=== PATIENT | female | born 1955 | race Caucasian/White ===

== ENCOUNTER → 2025-01-22 10:07 | Outpatient (CLI) | payer OTHER, SELFPAY ==
--- NOTE | 2025-01-22 10:12 | DI.RAD.S_ITS ---
PROCEDURE: XR DEXA AXIAL SKELETON INDICATIONS: Osteoporosis screening COMPARISON: None. FINDINGS: Lumbar Spine: Bone mineral density 0.734 g/cm2, T score -2.9. Left Femoral Neck: Bone mineral density 0.532 g/cm2, T score -2.9. Left Hip: Bone mineral density 0.719 g/cm2, T score -1.8. Fracture Risk Calculation (when applicable): Not applicable (T score greater or equal to -1.0 to: NORMAL) (T score from -1.1 to -2.4: OSTEOPENIA) (T score less than or equal to -2.5: OSTEOPOROSIS) IMPRESSION: Osteoporosis. Follow-up guidelines as follows: Osteoporosis: Consider a repeat DEXA and Vertebral Fracture Assessment (VFA) exam in 2 years or sooner if medically necessary, to reassess this patient's status. Osteopenia: Consider a repeat DEXA in 2-3 years to reassess this patient's status, or if there is a new clinical indication. Normal: Consider a repeat DEXA in 5 years or sooner, or if there is a new clinical indication. All treatment decisions require clinical judgment and consideration of individual patient factors, including patient preferences, comorbidities, previous drug use, risk factors not captured in the FRAX model (e.g., frailty, falls, vitamin D deficiency, increased bone turnover, interval significant decline in bone density ) and possible under- or over-estimation of fracture risk by FRAX. In addition, the NOF Guide recommends that FDA-approved medical therapies be considered in postmenopausal women and men age >= 50 years with a: * Hip or vertebral (clinical or morphometric) fracture * T-score of <=-2.5 at the spine or hip * Ten-year fracture probability by FRAX of >= 3% for hip fracture or >=20% for major osteoporotic fracture. Dictated by: Mj Young M.D. on 01/22/2025 at 11:07 Approved by: Mj Young M.D. on 01/22/2025 at 11:08
== END ==
PROVIDERS: PCP Family Medicine; Referring Provider Family Medicine; Visit Provider Family Medicine
DX: Z12.31 Encounter for screening mammogram for malignant neoplasm of breast (principal); M81.0 Age-related osteoporosis without current pathological fracture; M85.80 Other specified disorders of bone density and structure, unspecified site
CPT/HCPCS: 77080

== ENCOUNTER → 2025-02-24 12:39 | Outpatient (CLI) | payer OTHER, SELFPAY ==
--- NOTE | 2025-02-24 12:40 | DI.MG.S_ITS ---
MM screening mammo BI: 02/24/2025. BI-RADS: 2 CLINICAL: 69-year old female for bilateral screening mammogram. Tyrer-Cuzick lifetime risk of 3.1%. No personal or first-degree family history of breast cancer. The patient had a prior right breast biopsy. PRIOR EXAMS: 02/01/24, 12/16/22,10/27/19. MAMMOGRAPHY TECHNIQUE: 2D and 3D (tomosynthesis) digital mammographic views obtained, with additional images as needed for full coverage. Current study was also evaluated with a Computer Aided Detection (CAD) system. DENSITY B. There are scattered areas of fibroglandular density. MAMMOGRAPHY FINDINGS Right: Biopsy marker present on the right. Typically-benign vascular calcifications noted. Left: Typically-benign vascular calcifications noted. IMPRESSION: * No evidence of malignancy with benign findings. RECOMMENDATIONS Bilateral * Annual screening mammography. OVERALL ASSESSMENT CATEGORY BI-RADS-2: Benign. The [employer] recommends annual screening mammography beginning at age 40 for women with average risk of breast cancer. ELECTRONICALLY SIGNED: Nick Luke M.D. on 02/26/2025 at 10:08:30 AM PT Interpreting Station ID: [id number]
== END ==
LOC: MAMMO 12:39
PROVIDERS: PCP Family Medicine; Referring Provider Family Medicine; Visit Provider Family Medicine
DX: Z12.31 Encounter for screening mammogram for malignant neoplasm of breast (principal); R92.1 Mammographic calcification found on diagnostic imaging of breast
CPT/HCPCS: 77063; 77067